=== PATIENT | female | born 1935 | race Caucasian/White ===

== ENCOUNTER 2017-10-25 10:26 | Emergency (ER) | payer MEDICARE ==
[~2017-10-25] VITALS: Ht 167.6 cm; Wt 72.6 kg
[2017-10-25] MEDS ORDERED: COZAAR 25 MG TA25 M1 PO (10:38)
[2017-10-25] MEDS ORDERED: BYSTOLIC10 MG PO (10:38)
[2017-10-25] MEDS ORDERED: CLONAZEPAM 0.50.5 M1 PO (10:39)
[2017-10-25] MEDS ORDERED: HYDROCHLOROTH12.5 M1 PO (10:39)
[2017-10-25 11:17] LABS: ABSOLUTE BASOPHILS 0.1 thou/uL (0.0-0.2); ABSOLUTE EOSINOPHILS 0.2 thou/uL (0.0-0.7); ABSOLUTE LYMPHOCYTES 1.4 thou/uL (0.8-5.3); ABSOLUTE MONOCYTES 1.1 thou/uL (0.0-1.2); ABSOLUTE NEUTROPHILS 10.5 thou/uL (1.6-8.1); BASOPHILS 0.9 %; EOSINOPHILS 1.3 %; HEMATOCRIT 37.3 % (37.0-47.0); HEMOGLOBIN 12.6 gm/dL (12.0-15.0); LYMPHOCYTES 10.7 %; MCH 30.4 pg (26.0-34.0); MCHC 33.9 g/dL (28.0-37.0); MCV 89.5 fL (80.0-100.0); MONOCYTES 8.5 %; MPV 8.2 fl. (7.2-11.1); NUCLEATED RBCS 0 /100WBC; PLATELET COUNT* 270 thou/uL (150-400); POLYS 78.6 %; RBC 4.16 mil/uL (4.20-5.00); RDW-CV 14.2 % (10.5-14.5); WBC 13.4 thou/uL (4.0-11.0)
[2017-10-25 11:23] LABS: ANION GAP 6 mmol/L (7-16); BUN 14 mg/dL (7-18); CALCIUM 9.7 mg/dL (8.5-10.1); CHLORIDE 93 mmol/L (98-107); CO2 30 mmol/L (21-32); GLUCOSE 100 mg/dL (70-99); POTASSIUM 3.7 mmol/L (3.5-5.1); SODIUM 129 mmol/L (136-145)
[2017-10-25 11:30] LABS: ALKALINE PHOSPHATASE 99 U/L (46-116); SGOT 35 U/L (15-37); SGPT 26 U/L (30-65); TOTAL BILIRUBIN 0.7 mg/dL (<0.1-1.0); TOTAL PROTEIN 8.8 g/dL (6.4-8.2); TROPONIN-I LEVEL <0.06 ng/mL (<0.06)
[2017-10-25 12:59] LABS: URINE BILIRUBIN NEGATIVE (Negative); URINE BLOOD NEGATIVE (Negative); URINE CLARITY CLEAR; URINE COLOR YELLOW; URINE GLUCOSE-RANDOM NEGATIVE (Negative); URINE KETONES NEGATIVE (Negative); URINE LEUKOCYTES-REFLEX NEGATIVE (Negative); URINE NITRITE-REFLEX NEGATIVE (Negative); URINE PROTEIN NEGATIVE (Negative); URINE UROBILINOGEN 0.2 E.U./dl (0.2-1.0)
[2017-10-25 13:28] VITALS: BP 167/54
--- NOTE | 2017-10-25 15:03 | EKG ---
[place] [address] ELECTROCARDIOGRAM REPORT Name: TRANGADELAIDE Santos Room: [facility]#: [id number] Admission: 10/25/17 Attend Phys: Discharge: 10/25/17 Date of : 39 Report #: [id number] THIS REPORT FOR: //name// [facility] ED Test Date: 2017-10-25 Test Time: 11:18:12 Pat Name: ADELAIDE COSTELLO Department: Room: Gender: F Automobile Detailer: Carolyn LOGAN : 1935 Requested By: Felipa Awan Order Number: [id number] MD: Scott Li Measurements Intervals [place] Rate: 52 P: 37 MS: 147 QRS: 26 QRSD: 101 T: 36 QT: 435 QTc: 405 Interpretive Statements Sinus bradycardia Low voltage, precordial leads No previous ECG available for comparison Electronically Signed On 10-25-2017 15:03:14 CDT by Scott Li [email or web address] <ELECTRONICALLY SIGNED> By: Scott Li MD, [facility] 10/25/17 1503 D: [id number] 17 Scott Li MD, FACC /EPI
== END 2017-10-25 13:29 | disposition home or self-care (01) ==
LOC: M.ERS 10:26
PROVIDERS: Personal Emergency Response Attendant
DX: R55 Syncope and collapse (principal); R42 Dizziness and giddiness; I10 Essential (primary) hypertension; Z90.710 Acquired absence of both cervix and uterus; Z88.8 Allergy status to other drugs, medicaments and biological substances; Z88.6 Allergy status to analgesic agent

== ENCOUNTER 2018-06-11 05:30 | Inpatient (IN) | payer MEDICARE ==
[2018-06-11] VITALS (7 sets, daily range): BP systolic 104–211; BP diastolic 49–86
[~2018-06-11] VITALS: Ht 167.6 cm; Wt 79.4 kg
[~2018-06-11 05:30] MED LIST: BYSTOLIC10 MG PO; CLONAZEPAM 0.50.5 M1 PO; COZAAR 25 MG TA25 M1 PO; HYDROCHLOROTH12.5 M1 PO
[2018-06-11] MEDS ORDERED: CLONIDINE0.1 PO (05:44)
[2018-06-11] MEDS ORDERED: SINGULAIR 10 MG10 M1 PO (05:45)
[2018-06-11] MEDS ORDERED: LOSARTAN-HCTZ1 EAC3 PO (05:46)
[2018-06-11 06:16] LABS: ABSOLUTE MONOCYTES 0.9 thou/uL (0.0-1.2); BASOPHILS 0.5 %; EOSINOPHILS 0.8 %; HEMATOCRIT 37.6 % (37.0-47.0); HEMOGLOBIN 13.3 gm/dL (12.0-15.0); LYMPHOCYTES 16.8 %; MCH 30.1 pg (26.0-34.0); MCHC 35.4 g/dL (28.0-37.0); MCV 85.2 fL (80.0-100.0); MONOCYTES 15.6 %; MPV 7.3 fl. (7.2-11.1); NUCLEATED RBCS 0 /100WBC; PLATELET COUNT* 220 thou/uL (150-400); POLYS 66.3 %; RBC 4.41 mil/uL (4.20-5.00); RDW-CV 13.3 % (10.5-14.5); WBC 6.1 thou/uL (4.0-11.0)
[2018-06-11 06:28] LABS: INFLUENZA A ANTIGEN None Detected (None Detect); INFLUENZA B ANTIGEN None Detected (None Detect)
[2018-06-11 06:31] LABS: ALBUMIN 3.5 g/dL (3.4-5.0); CALCIUM 8.4 mg/dL (8.5-10.1); CREATININE 0.7 mg/dL (0.6-1.3); POTASSIUM 3.7 mmol/L (3.5-5.1); TOTAL BILIRUBIN 0.7 mg/dL (<0.1-1.0); TOTAL PROTEIN 7.7 g/dL (6.4-8.2)
[2018-06-11 07:32] LABS: URINE BILIRUBIN NEGATIVE (Negative); URINE BLOOD TRACE (Negative); URINE CLARITY CLEAR; URINE COLOR YELLOW; URINE GLUCOSE-RANDOM NEGATIVE (Negative); URINE KETONES TRACE (Negative); URINE LEUKOCYTES-REFLEX NEGATIVE (Negative); URINE NITRITE-REFLEX NEGATIVE (Negative); URINE PROTEIN 2+ (Negative); URINE SPECIFIC GRAVITY 1.025 (1.005-1.030); URINE UROBILINOGEN 0.2 E.U./dl (0.2-1.0)
[2018-06-11 07:47] LABS: BACTERIA-REFLEX None Seen /HPF (None Seen); CASTS None Seen /LPF (None Seen); CRYSTALS None Seen /LPF (None Seen); SQUAMOUS NONE SEEN /LPF (0-3); URINE RBC None Seen /HPF (0-2); URINE WBC-REFLEX None Seen /HPF (0-5)
--- NOTE | 2018-06-11 08:36 | NUR ---
TE NOTIFIED UPON PT RETURN FROM CT. PT WAS NOT CONNECTED TO MONITOR PT BEING TAKEN TO ROOM ON PT FLOOR
--- NOTE | 2018-06-11 14:39 | NUR ---
PT ADMITTED TO ROOM 200 VIA CART FROM ED AT APPROXMATELY 0845. REPORT RECEIVED FROM PATRICE TIWARI. PT ORIENTED TO ROOM AND CALL LIGHT. ADMISSION ASSESSMENT AND HISTORY COMPLETED. REFER TO CHARTING. FALL AGREEMENT AND MEDICARE FORM SIGNED AND PLACED IN FRONT OF CHART. PT SON, ISAEL AT BEDSIDE. PT A&0X4, FORGETFUL AT TIMES. SODIUM 114 ON ADMIT. REDRAW AT 117. DR VOGEL NOTIFIED. PT RECEIVING IVF AND NEPHROLOGY CONSULT PLACED. ORDERS RECEIVED FOR Q4 HOUR SODIUM. PT TRACING SR ON THE ROOM WORKER. PT ON 4L NC SAT 96%. WHEEZES NOTED. PT UP SBA TO BATHROOM. PT PLACED ON 1500 ML FLUID RESTRICTION. HOME MEDICATIONS RECONCILED AND RESTARTED. REFER TO EMAR. PT BLOOD PRESSURE ELEVATED AT 201/86 UPON ADMIT. RECHECK AT 146/87. HOME BP MEDS GIVEN. WILL CONTINUE TO MONITOR. MEDICATIONS PER MAY. PT REPOSITIONS SELF. HOURLY ROUNDING OBSERVED. BED IN LOW POSITION. BED ALARM IN PLACE. FALL PRECAUTIONS IN PLACE. CALL LIGHT WITHIN REACH. WILL CONTINUE PLAN OF CARE.
--- NOTE | 2018-06-11 17:10 | EKG ---
[place] [address] ELECTROCARDIOGRAM REPORT Name: ADELAIDE COSTELLO Room: [address] ADM IN [facility]#: [id number] Admission: 06/11/18 Attend Phys: Erlin Forte Discharge: Date of : 39 Report #: [id number] THIS REPORT FOR: //name// [facility] ED Test Date: 2018-06-11 Test Time: 06:33:07 Pat Name: ADELAIDE COSTELLO Department: Room: [facility] Gender: F Restaurant Crew Person: YADIRA : 1935 Requested By: Kallie Alvarez Order Number: [id number] MD: Curt Valdes Measurements Intervals [place] Rate: 65 P: 67 [place]: 157 QRS: 31 QRSD: 104 T: 48 QT: 433 QTc: 451 Interpretive Statements Sinus rhythm Compared to ECG 10/25/2017 11:18:12 Sinus bradycardia no longer present Electronically Signed On 06-11-2018 17:10:02 CDT by Curt Valdes [email or web address] <ELECTRONICALLY SIGNED> By: Curt Valdes MD, [facility] 06/11/18 3460 [id number] 0633 Curt Valdes MD, [facility] /EPI
--- NOTE | 2018-06-11 18:33 | NUR ---
NO ACUTE CHANGES THROUGHOUT SHIFT. REFER TO CHARTING. NEPHROLOGY HERE TO SEE PT. ORDERS RECEIVED TO DECREASE IVF TO 50ML/HR. REFER TO EMAR. 1600 NA- 117, TRENDING UP. PT TRACING SB/SR ON THE QUAL RESEARCH MANAGER. ON 2L NC SAT UPPER 90'S. DENIES ANY PAIN OR SHORTNESS OF BREATH THIS AFTERNOON. MEDICATIONS PER MAY. PT REPOSITIONS SELF. HOURLY ROUNDING OBSERVED. BED IN LOW POSITION. CALL LIGHT WITHIN REACH. BED ALARM IN PLACE. FALL PRECAUTIONS IN PLACE. WILL CONTINUE PLAN OF CARE.
--- NOTE | 2018-06-11 23:54 | NUR ---
PT IS COMPLAINING OF WORSENING SOB. SHE IS SATING 96% ON 2L NC WITH A RR OF 24. PT HAS WORSENING WHEEZES GREATER IN THE UPPER AIRWAY.
[2018-06-12] VITALS (9 sets, daily range): BP systolic 134–206; BP diastolic 46–96
--- NOTE | 2018-06-12 05:40 | NUR ---
RECEIVED REPORT AND ASSUMED CARE AT 1900. BP ELEVATED, OTHERWISE VSS. CARDAIC MONITORING IN PLACE. PT DENIES COMPLAINTS OF PAIN. ASSESSMENT COMPLETED CHARTED. MEDICATION ADMIN PER EMAR. PRN BP MEDICATION ADMIN. PT UP WITH ASSIST TO BSC, ON 2L NC. BED LOCKED IN LOWEST POSITION, CALL LIGHT WITHIN REACH. BED ALARM ON. HOURLY ROUNDING COMPLETED AD ALL NEEDS MET.
[2018-06-12 05:44] LABS: CALCIUM 8.3 mg/dL (8.5-10.1); CREATININE 0.9 mg/dL (0.6-1.3); POTASSIUM 3.1 mmol/L (3.5-5.1)
--- NOTE | 2018-06-12 14:20 | NUR ---
Pt is A&O. Resides at home alone. Normally independent. Pt has a walker and cane that she can use if needed. Hx of HH. No hx of SNF. Supportive family that is invovled in POC. Goal is home at ne. Following.
--- NOTE | 2018-06-12 16:06 | NUR ---
ASSUMED PT CARE AT 0700 PT IS ALERT AND ORIENTED X 4 PT DENIES PAIN OR SOA ON 2L/NC, PT IS UP WITH ASSIST X 1 TO BEDSIDE COMMODE PT IS A FALL RISK HAS WEAKNESS CHAIR ALARM IN PLACE, PT IS SR ON THE MONITOR, PHYSICIAN ORDERED POTASSIUM WHICH THIS NURSE GAVE 2 BAGS PER REPLACEMENT PROTOCOL, PT HAS ORDERED 1500 FLUID RESTRICTION, PHYSICIAN ORDERED PT ON LOW DOSE NS DRIP ON PT WHICH IS RUNNING, WILL CONTINUE TO MONITOR
--- NOTE | 2018-06-12 16:32 | CON ---
[address] [address] CONSULTATION Name: ADELAIDE COSTELLO Room: [address] IN [facility]#: [id number] Admission: 06/11/18 Attend Phys: Erlin Forte Discharge: Date of : 39 Report #: [id number] THIS REPORT FOR: //name// CC: [facility] physician/PCP Rafaela Rodriguez DATE OF SERVICE: 06/11/2018 REQUESTING PHYSICIAN: Rafaela Rodriguez MD REASON FOR CONSULTATION: Hyponatremia. HISTORY OF PRESENT ILLNESS: The patient is a very pleasant 83-year-old female who presented to the hospital on 06/11/2018 with complaints of weakness and cough. The patient states she has been having these problems for about a week. It is productive cough, p.o. intake is somewhat decreased. She was evaluated in the Emergency Room and she was found to have serum sodium of 114. She had chest x-ray done as well that revealed no acute process. There is a tiny nodule left lung, most likely granuloma. She had chest CT done that revealed no evidence of pulmonary emboli. PAST MEDICAL HISTORY: Significant for: 1. Hypertension. 2. History of chronic bronchitis. MEDICATIONS: Prior to admission reviewed. From my standpoint, she was on losartan/hydrochlorothiazide 100/25 once a day. FAMILY HISTORY: Negative for hyponatremia. SOCIAL HISTORY: Denies alcohol abuse or tobacco abuse. REVIEW OF SYSTEMS: Positive for the symptoms mentioned earlier. PHYSICAL EXAMINATION: GENERAL: Awake, alert, oriented, no acute distress. VITAL SIGNS: Blood pressure 198/78, heart rate 62, afebrile. HEENT: Pupils are round. NECK: Supple. LUNGS: Clear to auscultation bilaterally. CARDIOVASCULAR: Regular rate. ABDOMEN: Soft. LOWER EXTREMITIES: No edema. ASSESSMENT: 1. Hyponatremia, most likely due to hydrochlorothiazide[place] [address] CONSULTATION Name: ADELAIDE COSTELLO Room: [address]#: [id number] Admission: 06/11/18 Attend Phys: Erlin Forte Discharge: Date of : 39 Report #: [id number] was stopped. 2. Bronchitis. PLAN: 1. Await results on urine sodium and urine osmolality. 2. Her serum sodium is improving with saline, went up from 114-117. I want to slow down. I want to improve, but no more than by 10 in 24 hours. I will cut down the fluids to only 50 mL an hour and continue to monitor her serum sodium, avoid hydrochlorothiazide in the future. 3. Orders were given. Thank you very much for asking my opinion on hyponatremia. <ELECTRONICALLY SIGNED> By: Primitivo Ramirez MD 06/12/18 1632 [id number] [id number] EYAL Montiel
[2018-06-13 04:00] VITALS: BP 172/62
[2018-06-13 05:09] LABS: CALCIUM 8.6 mg/dL (8.5-10.1); CREATININE 0.8 mg/dL (0.6-1.3); POTASSIUM 3.9 mmol/L (3.5-5.1)
--- NOTE | 2018-06-13 05:26 | NUR ---
ASSUMED CARE OF PT AFTER REPORT AT 1930. PT A&OX4. VSS. PHYSICAL ASSESSMENT COMPLETED AND CHARTED. PT ON O2 AT 2L NC WITH 97% O2 SAT. PT TRACING SR ON TELE. PT UP WITH 1 ASSIST TO BSC. DENIES ANY PAIN OR DISCOMFORT. PT POTASSIUM 3.1. ELECTROLYTE PROTOCOL IN PLACE. REMINDED PT OF FLUID RESTRICTION. HOURLY ROUNDING OBSERVED. CALL LIGHT WITHIN REACH.
[2018-06-13 08:30] VITALS: BP 157/62
--- NOTE | 2018-06-13 12:24 | NUR ---
CM spoke with Pt regarding dispostion, Pt thinks that she will need skilled. Faxed referral to [facility] per Pt's request. Spoke with Laura at [facility], they will have beds available tomorrow. Awaiting decision to accept.
[2018-06-13 12:33] VITALS: BP 142/98
[2018-06-13 16:29] VITALS: BP 174/58
--- NOTE | 2018-06-13 16:37 | NUR ---
ASSUMED PT CARE AT 0700 PT IS ALERT AND ORIENTED X 4 PT IS FORGETFUL NEEDS REEDUCATION ON PLAN OF CARE AND MEDICATIONS, PT DENIES PAIN OR SOA ON 2L/NC, PT IS UP WITH ASSIST X 1 TO BEDSIDE COMMODE PT IS A FALLRISK BEDALARM IS ON, PT IS SR ON THE MONITOR, PT IS ON 1500ML FLUID RESTRICTION, PT LABS DRAWN FOR SODIUM LEVEL RESULTS CALLED INTO NEPHROLOGY, PT IS PROGRESSING TOWARDS GOALS, PT MAY DISCHARGE TO SNF WHEN CLEARED, WILL CONTINUE TO MONITOR
[2018-06-13 20:00] VITALS: BP 202/88
[2018-06-14] VITALS: BP 199/89
[2018-06-14 01:00] VITALS: BP 189/88
[2018-06-14 04:00] VITALS: BP 203/83
--- NOTE | 2018-06-14 05:05 | NUR ---
ASSUMED CARE OF PT AFTER REPORT AT 1930. PT A&OX4. VSS. PHYSICAL ASSESSMENT COMPLETED AND CHARTED. PT ON RA WITH 98% O2S SAT. PT TRACING SR/STON TELE. PT UP WITH 1 ASSIST TO BSC. PT BP WAS ELEVATED- DR ARREGUIN INFORMED. PT COMPLAINED OF HEADACHE- PAIN MEDS GIVEN PER MAR. CALL LIGHT WITHIN REACH. FALL PRECAUTIONS IN PLACE.
[2018-06-14 05:44] LABS: CALCIUM 8.7 mg/dL (8.5-10.1); CREATININE 0.9 mg/dL (0.6-1.3); POTASSIUM 4.4 mmol/L (3.5-5.1)
[2018-06-14 08:00] VITALS: BP 177/57
--- NOTE | 2018-06-14 10:17 | NUR ---
ASSUMED CARE OF PT AT 0730. PT RESTING IN BED. PT A&0X4, COMPLAINS OF HEADACHE, TREATED WITH PRN TYLENOL WITH COMPLETE RELIEF. PT TRACING SR ON THE [employer] WEB DEVELOPER. ON RA SAT UPPER 90'S. DENIES ANY SHORTNESS OF BREATH. PT UP WITH 1 ASSIST. PT BLOOD PRESSURE 170'S THIS AM. PO MEDS GIVEN. DR VOGEL NOTIFIED. ORDERS RECEIVED FOR ONE TIME DOSE OF AMLODIPINE 10 MG PO. REFER TO EMAR. SODIUM BETTER THIS AM. PT ON 1500 ML FL RESTRICTION. PT GOAL FOR TODAY IS MONITOR BLOOD PRESSURE, SBP <150 AND DISCHARGE PLANNING TO [facility] FACILITY. AM ASSESSMENT CHARTED. MEDICATIONS PER MAY. PT REPOSITIONS SELF. HOURLY ROUNDING OBSERVED. BED IN LOW POSITION. CALL LIGHT WITHIN REACH. WILL CONTINUE PLAN OF CARE.
--- NOTE | 2018-06-14 11:02 | NUR ---
TECHNICAL RECRUITER INFORMED THAT THE PATIENT WOULD D/C TODAY. SPOKE TO JANKI WITH [facility] AND SHE INFORMS THAT TRANSPORT IS ARRANGED FOR 1300. D/C FIELD CONTACT TECHNICIAN FAXED THE PATIENT'S D/C ORDERS TO [facility]. D/C FIELD CONTACT TECHNICIAN SPOKE TO THE PATIENT TO INFORM HER OF THE TIME OF TRANSPORT AND SHE IS IN AGREEMENT. D/C FIELD CONTACT TECHNICIAN INFORMED THE RN IN-CHARGE OF THE PATIENT OF THE PATIENT'S TIME OF TRANSPORT AND WHERE TO CALL REPORT. RN IN AGREEMENT. CM WILL REMAIN AVILABLE TO ASSIST AND FOLLOW NEEDED.
[2018-06-14] MEDS ORDERED: IPRAT-ALBUT 0.5-3 ML INH (11:40)
[2018-06-14] MEDS ORDERED: MELATONIN5 M1 PO (11:44)
[2018-06-14] MEDS ORDERED: NORVASC10 MG PO (11:45)
[2018-06-14] MEDS ORDERED: PREDNISONE 10 M10 MG PO (11:48)
[2018-06-14] MEDS ORDERED: DOXYCYCLINE 10100 M1 PO (11:52)
[2018-06-14 12:13] VITALS: BP 158/59
--- NOTE | 2018-06-14 12:59 | NUR ---
DISCHARGE ORDERS RECEIVED. PT DISCHARGING TO [facility]. DISCHARGE INSTRUCTIONS AND FOLLOW UP APPTS COPIED AND PLACED IN FOLDER FOR TRANSPORTER. PT COMMUNICATES UNDERSTANDING OF DISCHARGE TEACHING. IV AND MICROCOMPUTER TECHNICIAN REMOVED. PT DISCHARGED WITH ALL BELONGINGS AND PAPERWORK VIA WHEELCHAIR WITH [facility] TRANSPORTER. REPORT CALLED TO PATRICE HAJI AT [facility].
== END 2018-06-14 13:00 | DRG 917 ==
LOC: M.ERS 05:30 → M.TBA-ER 06:45 → M.2W 06:45
PROVIDERS: Emergency Medicine; Internal Medicine Nephrology; Personal Emergency Response Attendant; ADMIT Internal Medicine
DX: T50.2X1A Poisoning by carbonic-anhydrase inhibitors, benzothiadiazides and other diuretics, accidental (unintentional), initial encounter (principal); G93.41 Metabolic encephalopathy; E87.1 Hypo-osmolality and hyponatremia; J20.9 Acute bronchitis, unspecified; I10 Essential (primary) hypertension; Z90.710 Acquired absence of both cervix and uterus; Z88.6 Allergy status to analgesic agent; Z88.8 Allergy status to other drugs, medicaments and biological substances; I16.0 Hypertensive urgency; Y92.89 Other specified places as the place of occurrence of the external cause; Z79.899 Other long term (current) drug therapy